=== PATIENT | male | born 1935 | race Caucasian/White ===

== ENCOUNTER 2019-01-19 23:31 | Inpatient (IN) | payer MEDICARE, MEDICAID ==
[~2019-01-19] VITALS: Ht 182.9 cm; Wt 78.7 kg
[2019-01-20] MEDS ORDERED: IV NORMAL SALINE 500 ML BAG IV ONE
[2019-01-20] MEDS ORDERED: CEFTRIAXONE 1 G in IV DEXTROSE 5% 50 ML IV ONE ×2
[2019-01-20] MEDS ORDERED: LACT-239 PO (00:08)
[2019-01-20] MEDS ORDERED: FENT1PAT5 TP (00:08)
[2019-01-20] MEDS ORDERED: DOCU100C36 PO (00:08)
[2019-01-20] MEDS ORDERED: POTA10CA43 PO (00:08)
[2019-01-20 00:09] LABS: BASOPHILS % (AUTO) 0.4 % (0.0-2.0); EOSINOPHILS # (AUTO) 0.3 K/uL (0.0-0.7); EOSINOPHILS % (AUTO) 3.5 % (0.0-7.0); HEMOGLOBIN 11.2 g/dL (12.5-16.3); LYMPHOCYTES # (AUTO) 1.5 K/uL (20.0-40.0); MEAN CORPUSCULAR HEMOGLOBIN 28.3 uug (23.8-33.4); MEAN CORPUSCULAR HGB CONC 33 g/dL (32.5-36.3); MEAN CORPUSCULAR VOLUME 85.7 fL (73.0-96.2); MONOCYTES # (AUTO) 0.8 K/uL (2.0-10.0); MONOCYTES % (AUTO) 9.3 % (0.0-11.0); NEUTROPHILS # (AUTO) 5.8 K/uL (1.8-8.9); NEUTROPHILS % (AUTO) 68.8 % (38.5-71.5); PLATELET COUNT (AUTO) 517 K/uL (152-348); RED BLOOD CELL COUNT(AUTO) 3.97 MIL/uL (4.06-5.63); WHITE BLOOD COUNT (AUTO) 8.4 K/uL (3.6-10.2)
[2019-01-20] MEDS ORDERED: LIDOCAINE 2% (UROJET) 10 ML JELLY MM ONE ×2 (00:24)
[2019-01-20] MEDS ORDERED: CEFTRIAXONE /D5W 50ML IVPB **ER PYXIS IV ONE (00:24)
[2019-01-20 00:32] LABS: BILIRUBIN,DIRECT 0.1 mg/dL (0.0-0.2); BILIRUBIN,TOTAL 0.3 mg/dL (0.2-1.0); TOTAL PROTEIN, SERUM 7.1 g/dL (6.4-8.2)
[2019-01-20 01:15] LABS: *BILIRUBIN,URIN NEGATIVE (NEGATIVE); *BLOOD, URINE NEGATIVE (NEGATIVE); *CLARITY,URINE CLEAR (CLEAR); *COLOR,URINE YELLOW (YELLOW); *KETONES,URINE NEGATIVE (NEGATIVE); *UROBILINOGEN,URINE 0.2 E.U./dl (NORMAL); LEUKOCYTE ESTERASE ,URINE NEGATIVE (NEGATIVE); NITRITE, URINE NEGATIVE (NEGATIVE); PH,URINE 6.5 (5.0-8.0); UGLUCOSE NEGATIVE (NEGATIVE)
[2019-01-20] MEDS ORDERED: ACETAMINOPHEN 325 MG TABLET PO PRN (01:45)
[2019-01-20] MEDS ORDERED: MAGNESIUM HYDROXIDE 30 ML LIQUID UDC PO PRN (01:45)
[2019-01-20] MEDS ORDERED: Z GUARD REMEDY PASTE 57 GM TUBE TOP PRN ×2 (01:45→07:45)
[2019-01-20] MEDS ORDERED: TEMAZEPAM 15 MG CAPSULE PO PRN (01:45)
[2019-01-20] MEDS ORDERED: ONDANSETRON 4 MG/2 ML VIAL IV PRN (01:45)
[2019-01-20] MEDS ORDERED: HYDROCODONE/APAP 5-325MG TABLET PO PRN (01:45)
[2019-01-20 02:46] VITALS: BP 124/62
[2019-01-20] MEDS: IV NS 1000 ML 1,000 ML IV PRN ×2 (03:30→21:22)
[2019-01-20 06:24] VITALS: BP 120/62
[2019-01-20] MEDS ORDERED: COMPLEAT MODIFIED FORMULA 1000 ML LIQUID PO PRN (09:45)
[2019-01-20] MEDS: DOCUSATE SODIUM 100 MG CAPSULE PO SCH ×4 (09:45→17:02)
[2019-01-20] MEDS: CALCIUM CARB/VITAMIN D 600-400 MG TABLET PO SCH ×3 (10:00→11:22)
[2019-01-20] MEDS ORDERED: ENSURE ENLIVE (VAN) 240 ML LIQUID PO PRN (10:45)
[2019-01-20 11:40] VITALS: BP 126/64
[2019-01-20 12:29] VITALS: BP 126/64
[2019-01-20 16:00] VITALS: BP 119/58
[2019-01-20 20:09] VITALS: BP 132/57
[2019-01-20] MEDS: HEPARIN SODIUM,PORCINE 5,000 UNITS/ML VIAL SQ SCH (21:09)
[2019-01-21 05:18] VITALS: BP 145/68
[2019-01-21 06:49] LABS: BASOPHILS # (AUTO) 0.1 K/uL (0.0-8.0); BASOPHILS % (AUTO) 1.2 % (0.0-2.0); EOSINOPHILS # (AUTO) 0.2 K/uL (0.0-0.7); EOSINOPHILS % (AUTO) 4.4 % (0.0-7.0); HEMATOCRIT 29.1 % (36.7-47.1); HEMOGLOBIN 9.7 g/dL (12.5-16.3); LYMPHOCYTES # (AUTO) 1.3 K/uL (20.0-40.0); LYMPHOCYTES % (AUTO) 27.8 % (20.5-51.5); MEAN CORPUSCULAR HEMOGLOBIN 28.8 uug (23.8-33.4); MEAN CORPUSCULAR HGB CONC 34 g/dL (32.5-36.3); MONOCYTES # (AUTO) 0.4 K/uL (2.0-10.0); MONOCYTES % (AUTO) 8.9 % (0.0-11.0); NEUTROPHILS # (AUTO) 2.6 K/uL (1.8-8.9); NEUTROPHILS % (AUTO) 57.7 % (38.5-71.5); PLATELET COUNT (AUTO) 421 K/uL (152-348); RED BLOOD CELL COUNT(AUTO) 3.38 MIL/uL (4.06-5.63); WHITE BLOOD COUNT (AUTO) 4.6 K/uL (3.6-10.2)
[2019-01-21 06:59] LABS: CREATININE 0.8 mg/dL (0.6-1.3); MAGNESIUM 1.9 mg/dL (1.8-2.4); PHOSPHOROUS 2.9 mg/dL (2.5-4.9); POTASSIUM 3.6 mmol/L (3.5-5.1)
[2019-01-21] MEDS: CALCIUM CARB/VITAMIN D 600-400 MG TABLET PO SCH (08:49)
[2019-01-21] MEDS: HEPARIN SODIUM,PORCINE 5,000 UNITS/ML VIAL SQ SCH ×2 (08:49→20:47)
[2019-01-21] MEDS: POTASSIUM CHLORIDE 8 MEQ TAB.PRT.SR PO SCH (08:50)
[2019-01-21] MEDS: DOCUSATE SODIUM 100 MG CAPSULE PO SCH ×2 (08:50→17:00)
[2019-01-21] MEDS ORDERED: POTASSIUM CHLORIDE 10 MEQ TAB.PRT.SR PO SCH (09:00)
[2019-01-21 11:12] VITALS: BP 109/60
[2019-01-21 15:12] VITALS: BP 146/77
[2019-01-21] MEDS: IV NS 1000 ML 1,000 ML IV PRN (16:20)
[2019-01-21] MEDS ORDERED: FENTANYL 50 MCG/HR PATCH TD SCH (17:00)
[2019-01-21 19:59] VITALS: BP 146/71
[2019-01-21] MEDS ORDERED: MUPIROCIN 2% OINT 22 GM TUBE NS SCH (21:00)
[2019-01-22 04:57] VITALS: BP 150/70
[2019-01-22 06:34] LABS: BASOPHILS % (AUTO) 0.7 % (0.0-2.0); EOSINOPHILS # (AUTO) 0.2 K/uL (0.0-0.7); EOSINOPHILS % (AUTO) 3.3 % (0.0-7.0); HEMATOCRIT 30.8 % (36.7-47.1); HEMOGLOBIN 10.2 g/dL (12.5-16.3); LYMPHOCYTES % (AUTO) 19.8 % (20.5-51.5); MEAN CORPUSCULAR HEMOGLOBIN 28.8 uug (23.8-33.4); MEAN CORPUSCULAR HGB CONC 33 g/dL (32.5-36.3); MEAN CORPUSCULAR VOLUME 86.4 fL (73.0-96.2); MONOCYTES # (AUTO) 0.5 K/uL (2.0-10.0); MONOCYTES % (AUTO) 9.8 % (0.0-11.0); NEUTROPHILS # (AUTO) 3.5 K/uL (1.8-8.9); NEUTROPHILS % (AUTO) 66.4 % (38.5-71.5); PLATELET COUNT (AUTO) 435 K/uL (152-348); RED BLOOD CELL COUNT(AUTO) 3.56 MIL/uL (4.06-5.63); WHITE BLOOD COUNT (AUTO) 5.3 K/uL (3.6-10.2)
[2019-01-22] MEDS: IV NS 1000 ML 1,000 ML IV PRN (06:39)
[2019-01-22 07:06] LABS: THYROID STIMULATING HORMONE 3.58 mIU/mL (0.358-3.740)
[2019-01-22 07:13] LABS: CREATININE 0.8 mg/dL (0.6-1.3); POTASSIUM 3.4 mmol/L (3.5-5.1)
[2019-01-22] MEDS: POTASSIUM CHLORIDE 8 MEQ TAB.PRT.SR PO SCH (09:06)
[2019-01-22] MEDS: CALCIUM CARB/VITAMIN D 600-400 MG TABLET PO SCH (09:06)
[2019-01-22] MEDS: DOCUSATE SODIUM 100 MG CAPSULE PO SCH ×2 (09:06→17:54)
[2019-01-22] MEDS: HEPARIN SODIUM,PORCINE 5,000 UNITS/ML VIAL SQ SCH ×2 (09:08→20:45)
[2019-01-22] MEDS: MUPIROCIN 2% OINT 22 GM TUBE NS SCH ×2 (10:39→20:45)
[2019-01-22] MEDS ORDERED: POTASSIUM CHLORIDE 20 MEQ TAB.PRT.SR PO ONE (11:00)
[2019-01-22 11:05] VITALS: BP 148/77
[2019-01-22 16:00] VITALS: BP 149/82
[2019-01-22 19:24] LABS: *OCCULT BLOOD STOOL NEGATIVE (NEGATIVE)
[2019-01-22 20:18] VITALS: BP 167/82
[2019-01-22] MEDS ORDERED: hydrALAZINE HCL 20 MG/1 ML VIAL IV ONE (20:30)
[2019-01-23] MEDS: IV NS 1000 ML 1,000 ML IV PRN (03:58)
[2019-01-23 04:59] VITALS: BP 145/72
[2019-01-23 06:30] LABS: CREATININE 0.8 mg/dL (0.6-1.3); POTASSIUM 3.4 mmol/L (3.5-5.1)
[2019-01-23 08:06] LABS: *IMMUNOGLOBULIN G, SERUM 1200 mg/dL (700-1600); IMMUNOGLOBULIN A, SERUM 274 mg/dL (61-437); IMMUNOGLOBULIN M, SERUM 48 mg/dL (15-143)
[2019-01-23] MEDS: POTASSIUM CHLORIDE 8 MEQ TAB.PRT.SR PO SCH (08:20)
[2019-01-23] MEDS: DOCUSATE SODIUM 100 MG CAPSULE PO SCH (08:20)
[2019-01-23] MEDS: CALCIUM CARB/VITAMIN D 600-400 MG TABLET PO SCH (08:20)
[2019-01-23] MEDS: MUPIROCIN 2% OINT 22 GM TUBE NS SCH (08:21)
[2019-01-23] MEDS: HEPARIN SODIUM,PORCINE 5,000 UNITS/ML VIAL SQ SCH (08:24)
[2019-01-23 11:56] VITALS: BP 128/68
[2019-01-23] MEDS ORDERED: POTASSIUM CHLORIDE 20 MEQ TAB.PRT.SR PO ONE (12:00)
[2019-01-23 14:06] LABS: CARBOHYDRATE ANTIGEN, 19-9 19 U/mL (0-35)
[2019-01-24 12:07] LABS: A/G RATIO 0.8 (0.7-1.7); ALBUMIN 2.5 g/dL (2.9-4.4); ALPHA-1-GLOBULIN 0.3 g/dL (0.0-0.4); ALPHA-2-GLOBULIN 0.9 g/dL (0.4-1.0); BETA GLOBULIN 1.1 g/dL (0.7-1.3); GLOBULIN, TOTAL 3.3 g/dL (2.2-3.9); M-SPIKE Not Observed g/dL (Not Observed)
[2019-01-24] MEDS ORDERED: FENTANYL 50 MCG/HR PATCH TD SCH (18:00)
== END 2019-01-23 15:00 | DRG 439 ==
LOC: ER 23:34 → TELE3 01-20 02:04 → MEDSURG3 01-20 11:05
PROVIDERS: ADMIT Nurse Practitioner Acute Care; ATTEND Hospitalist
DX: K86.9 Disease of pancreas, unspecified (principal); I69.351 Hemiplegia and hemiparesis following cerebral infarction affecting right dominant side; E44.0 Moderate protein-calorie malnutrition; M48.54XA Collapsed vertebra, not elsewhere classified, thoracic region, initial encounter for fracture; J98.11 Atelectasis; I50.30 Unspecified diastolic (congestive) heart failure; E78.5 Hyperlipidemia, unspecified; K76.89 Other specified diseases of liver; Z74.01 Bed confinement status; M81.0 Age-related osteoporosis without current pathological fracture; R63.0 Anorexia; Z68.23 Body mass index [BMI] 23.0-23.9, adult; N20.0 Calculus of kidney; K59.00 Constipation, unspecified; K40.20 Bilateral inguinal hernia, without obstruction or gangrene, not specified as recurrent; K21.9 Gastro-esophageal reflux disease without esophagitis; N21.0 Calculus in bladder; N31.9 Neuromuscular dysfunction of bladder, unspecified; I73.9 Peripheral vascular disease, unspecified; G40.909 Epilepsy, unspecified, not intractable, without status epilepticus; F03.90 Unspecified dementia, unspecified severity, without behavioral disturbance, psychotic disturbance, mood disturbance, and anxiety; Z66 Do not resuscitate; D64.9 Anemia, unspecified; Z22.322 Carrier or suspected carrier of Methicillin resistant Staphylococcus aureus; I11.0 Hypertensive heart disease with heart failure; G89.29 Other chronic pain; M54.5 Low back pain
CPT/HCPCS: 36415; 70030-TC; 71045; 74181; 82378; 82784; 83550; 83605; 83690; 83735; 84100; 84155; 84165; 84443; 85025; 85730; 86301; 86334; 87040; 87086; 87400; 93005; A4663; C1758; G0378; J0360; J0696; J1644; J7030; J7040